=== PATIENT | female | born 1960 | race Caucasian/White ===

== ENCOUNTER 2018-06-23 15:13 | Inpatient (IN) ==
[2018-06-23] MEDS ORDERED: Ketorolac Inj 30 MG/ML (IVP) Vial IV.PUSH ONE (16:04)
[2018-06-23] MEDS ORDERED: Lidocaine PF 1% Inj 30 ML Vial INFILTRATN ONE (16:04)
--- NOTE | 2018-06-23 16:11 | ED ---
HPI General Chief complaint: Skin/Abscess/Foreign Body Stated complaint: RT ARM RED SWOLLEN STARTED SATURDAY Time Seen by Provider: 06/23/18 15:55 Source: patient Mode of arrival: ambulatory Limitations: no limitations History of Present Illness HPI narrative: 58yo F with PMH of COPD, DM presents to the ED with right elbow redness and pain for 2 days. Said there was a blister there but denies any trauma. Denies any fever, chest pain, sob, n/v, abdominal pain, focal weakness or numbness. Related Data Home Medications Medication Instructions Recorded Confirmed Celebrex 200 mg PO DAILY 06/23/18 06/23/18 albuterol sulfate 0.25 mg/kg INHALATION Q3H 06/23/18 06/23/18 albuterol sulfate [ProAir HFA] 2 puff INHALATION Q4-6H PRN 06/23/18 06/23/18 fluticasone [Flovent HFA] 1 puff INHALATION BID 06/23/18 06/23/18 gabapentin 300 mg PO TID 06/23/18 06/23/18 hydrochlorothiazide 12.5 mg PO DAILY 06/23/18 06/23/18 hydrochlorothiazide 12.5 mg PO DAILY 06/23/18 06/23/18 hydroxyzine pamoate 100 mg PO HS 06/23/18 06/23/18 levothyroxine 06/23/18 06/23/18 linagliptin [Tradjenta] 0 mg PO DAILY 06/23/18 06/23/18 metoprolol tartrate 0 mg PO DAILY 06/23/18 06/23/18 omeprazole 40 mg PO DAILY 06/23/18 06/23/18 potassium chloride 20 meq PO BID 06/23/18 06/23/18 Allergies Allergy/AdvReac Type Severity Reaction Status Date / Time Penicillins Allergy Rash Verified 06/23/18 15:21 Review of Systems ROS Unobtainable All other systems reviewed negative except as stated in HPI PMFSH Social History Social History Substance History: No History of Abuse Smoking Status: Former smoker How Often Do You Have a Drink Containing Alcohol: Never Recent Travel in [facility] within the Last 8 Weeks: No Recent Out of Country Travel within the Last 8 Weeks: No Immunization History Tetanus Immunization: Unsure Hx Influenza Vaccine This Season: No Exam Narrative Exam Narrative: GENERAL: 58yo F in mild distress. SKIN: Focused skin assessment warm/dry. HEAD: Atraumatic. Normocephalic. CARDIOVASCULAR: Regular rate and rhythm. No murmur appreciated. RESPIRATORY: No accessory muscle use. Clear to auscultation. Breath sounds equal bilaterally. GASTROINTESTINAL: Abdomen soft, non-tender, nondistended. MUSCULOSKELETAL: RUE: +Erythema over right elbow joint to distal forearm about 33cm by 22cm. +Fluctuance in olecranon. Pain with range of motion in right elbow. Distal pulses intact. Sensation intact. NEUROLOGICAL: Awake and alert. No obvious cranial nerve deficits. Motor grossly within normal limits. Normal speech. PSYCHIATRIC: Appropriate mood and affect; insight and judgment normal. Procedures Bursa Procedures Time Out Performed: No Side of body: right Site of Procedure: olecranon bursa XRAY Obtained: normal Antisepsis Used: Povidone-Iodine1% Local anesthetic used: lidocaine 1% Amount of anesthesia used (mL): 4 Fluid obtained (mL): 5 Fluid Type: cloudy and purulent Course Initial Documented Vital Signs Temperature 98.5 F 06/23/18 15:21 Pulse Rate 76 06/23/18 15:21 Respiratory Rate 18 06/23/18 15:21 Blood Pressure 120/57 L 06/23/18 15:21 Pulse Oximetry 95 06/23/18 15:21 Last Documented Vital Signs Temperature 98.5 F 06/23/18 15:21 Pulse Rate 83 06/23/18 22:00 Respiratory Rate 18 06/23/18 22:00 Blood Pressure 119/69 06/23/18 22:00 Pulse Oximetry 98 06/23/18 22:00 Critical Care Time Critical Care Time: Yes Total Critical Care Time: 35 Attestation: Aggregate critical care time was 35 minutes. Time to perform other separately billable procedures was not included in the critical care time. My time did not include minutes spent treating any other patients simultaneously or on activities that did not directly contribute to the patient's treatment. The services I provided to this patient were to treat and/or prevent clinically significant deterioration that could result in: cardiovascular collapse or . I provided critical care services requiring my management, as noted below: Chart data review, documentation time, medication orders and management, vital sign assessments/reviewing monitor data, ordering and reviewing lab tests, ordering and interpreting/reviewing x-rays and diagnostic studies, care of the patient and discussion of the patient with the admitting physicians. Medical Decision Making MDM Narrative Medical decision making narrative: 58yo F here with right elbow redness and pain for 2 days. Pt leans on her elbow a lot and had a blister on her elbow before it became red. Labs reviewed, leukocytosis at 16.6. H/H normal. Mildly elevated at 1.50. Blood cultures obtain. Pt given vancomycin. There is fluctuance of the olecranon bursa so discussed with Dr. Mccauley who said it was fine to aspirate and send fluid to lab for cell count and culture. 5.5cc of cloudy, purulent fluid aspirated and sent. Dr. Cruz wants to sent pt to the [facility] and place a consult for him. Discussed with Dr. Hollingsworth and accepted to his service. Differential Diagnosis Differential Diagnosis: Septic bursitis vs. cellulitis vs. septic joint vs. abscess Lab Data Result diagrams: 06/23/18 16:20 06/23/18 16:20 Lab Results 06/23/18 06/23/18 06/23/18 Range/Units 16:20 16:20 16:20 CBC w Diff Auto diff final WBC 16.6 H (4.0-11.0) th/mm3 RBC 5.05 (4.00-5.30) mil/mm3 Hgb 12.9 (11.6-15.3) gm/dL Hct 38.9 (35.0-46.0) % MCV 77.1 L (80.0-100.0) fL MCH 25.6 L (27.0-34.0) pg MCHC 33.2 (32.0-36.0) % RDW 15.2 (11.6-17.2) % Plt Count 225 (150-450) th/mm3 MPV 10.9 (7.0-11.0) fL Neut % (Auto) 85.8 H (16.0-70.0) % Lymph % (Auto) 4.8 L (9.0-44.0) % Clay % (Auto) 6.9 (0.0-8.0) % Eos % (Auto) 2.1 (0.0-4.0) % Baso % (Auto) 0.4 (0.0-2.0) % Neut # (Auto) 14.3 H (1.8-7.7) th/mm3 Lymph # (Auto) 0.8 L (1.0-4.8) th/mm3 Clay # (Auto) 1.1 H (0.0-0.9) th/mm3 Eos # (Auto) 0.3 (0.0-0.4) th/mm3 Baso # (Auto) 0.1 (0.0-0.2) th/mm3 WBC Differential . Differential Comment . ESR (0-30) mm/hr Sodium 137 (136-145) meq/L Potassium 3.6 (3.5-5.1) meq/L Chloride 103 (98-107) meq/L Carbon Dioxide 26.8 (21.0-32.0) meq/L Anion Gap 7 (5-15) meq/L BUN 18 (7-18) mg/dL Creatinine 1.50 H (0.50-1.00) mg/dL Estimated GFR 36 L (>89) mL/min Random Glucose 118 H (74-106) mg/dL Lactic Acid 1.2 (0.4-2.0) mmol/L Calcium 9.5 (8.5-10.1) mg/dL Synovial Color (Straw) Synovial Appearance (Clear) Synovial RBC (0-0) /mm3 Synovial Nuc Cells (0-200) /mm3 Synovial Neutrophils (0-25) % Synovial Lymphocytes % Synovial Crystals (None) 06/23/18 06/23/18 06/23/18 Range/Units 16:20 18:30 18:30 CBC w Diff WBC (4.0-11.0) th/mm3 RBC (4.00-5.30) mil/mm3 Hgb (11.6-15.3) gm/dL Hct (35.0-46.0) % MCV (80.0-100.0) fL MCH (27.0-34.0) pg MCHC (32.0-36.0) % RDW (11.6-17.2) % Plt Count (150-450) th/mm3 MPV (7.0-11.0) fL Neut % (Auto) (16.0-70.0) % Lymph % (Auto) (9.0-44.0) % Clay % (Auto) (0.0-8.0) % Eos % (Auto) (0.0-4.0) % Baso % (Auto) (0.0-2.0) % Neut # (Auto) (1.8-7.7) th/mm3 Lymph # (Auto) (1.0-4.8) th/mm3 Clay # (Auto) (0.0-0.9) th/mm3 Eos # (Auto) (0.0-0.4) th/mm3 Baso # (Auto) (0.0-0.2) th/mm3 WBC Differential Differential Comment ESR 27 (0-30) mm/hr Sodium (136-145) meq/L Potassium (3.5-5.1) meq/L Chloride (98-107) meq/L Carbon Dioxide (21.0-32.0) meq/L Anion Gap (5-15) meq/L BUN (7-18) mg/dL Creatinine (0.50-1.00) mg/dL Estimated GFR (>89) mL/min Random Glucose (74-106) mg/dL Lactic Acid (0.4-2.0) mmol/L Calcium (8.5-10.1) mg/dL Synovial Color White H (Straw) Synovial Appearance Marked H (Clear) Synovial RBC 1000 H (0-0) /mm3 Synovial Nuc Cells [id number] H (0-200) /mm3 Synovial Neutrophils 98 H (0-25) % Synovial Lymphocytes 2 % Synovial Crystals None (None) Imaging Data Radiologist's impression: Elbow X-Ray 06/23/18 16:04 CONCLUSION: No acute abnormality. Discharge Plan Discharge Disposition Patient Disposition: 30 Still Patient Discharge Details Diagnosis: Septic bursitis Physicians Team ED Provider: Aliza Contreras Primary Care Provider: NON STAFF,PROVIDER Attending Provider: Louie Hollingsworth Other Providers: Gabriel Mccauley Discharge Interventions Interventions: Vital Signs Last Done: 06/23/18 22:00 Status ED Status: Admitted Patient
--- NOTE | 2018-06-23 16:31 | XR ---
EXAM DATE: 06/23/2018 4:22 PM EDT AGE/SEX: 58 years / Female INDICATIONS: Right elbow redness and swelling for 2 days. No known trauma. CLINICAL DATA: This is the patient's initial encounter. Patient reports that signs and symptoms have been present for 2 days and indicates a pain score of 4/10. MEDICAL/SURGICAL HISTORY: None. None. COMPARISON: No prior exams available for comparison. FINDINGS: Bony structures are intact and in normal alignment. Joints are intact without dislocation or signifi cant arthropathy. Osseous density is normal. Soft tissues are unremarkable. No radiopaque foreign bodies seen. CONCLUSION: No acute abnormality. Electronically signed by: James Dave MD 06/23/2018 4:29 PM EDT
[2018-06-23 16:36] LABS: Baso # (Auto) 0.1 th/mm3 (0.0-0.2); Baso % (Auto) 0.4 % (0.0-2.0); Eos # (Auto) 0.3 th/mm3 (0.0-0.4); Eos % (Auto) 2.1 % (0.0-4.0); Hematocrit 38.9 % (35.0-46.0); Hemoglobin 12.9 gm/dL (11.6-15.3); Lymph # (Auto) 0.8 th/mm3 (1.0-4.8); Lymph % (Auto) 4.8 % (9.0-44.0); Mean Corpuscular HGB Conc 33.2 % (32.0-36.0); Mean Corpuscular Hemoglobin 25.6 pg (27.0-34.0); Mean Corpuscular Volume 77.1 fL (80.0-100.0); Mean Platelet Volume 10.9 fL (7.0-11.0); Mono # (Auto) 1.1 th/mm3 (0.0-0.9); Mono % (Auto) 6.9 % (0.0-8.0); Neut # (Auto) 14.3 th/mm3 (1.8-7.7); Neut % (Auto) 85.8 % (16.0-70.0); Platelet Count 225 th/mm3 (150-450); Red Blood Count 5.05 mil/mm3 (4.00-5.30); Red Cell Distribution Width 15.2 % (11.6-17.2); White Blood Count 16.6 th/mm3 (4.0-11.0)
[2018-06-23] MEDS ORDERED: Vancomycin Inj 1 GM/200 ML PIGGYBACK IV.SIG ONE (16:41)
[2018-06-23 16:46] LABS: Potassium 3.6 meq/L (3.5-5.1)
[2018-06-23 16:49] LABS: Calcium 9.5 mg/dL (8.5-10.1)
[2018-06-23 16:50] LABS: Carbon Dioxide 26.8 meq/L (21.0-32.0)
[2018-06-23 18:56] LABS: Appearance,Synovial Fluid Marked (Clear); Color,Synovial Fluid White (Straw)
[2018-06-23 19:48] LABS: Lymphocytes,Synovial Fluid 2 %; Neutrophils,Synovial Fluid 98 % (0-25)
[2018-06-23] MEDS ORDERED: Sod Chloride 0.9% Inj 1,000 ML IV.SIG ONE (19:54)
[2018-06-23] MEDS ORDERED: Bisacodyl 10 MG Supp RECTAL PRN (20:24)
[2018-06-23] MEDS ORDERED: Temazepam 15 MG Capsule PO PRN (20:24)
[2018-06-23] MEDS ORDERED: Acetaminophen 325 MG Tablet PO PRN (20:24)
[2018-06-23] MEDS ORDERED: Vancomycin Consult Pharmacy 1 EACH OTHER SCH (21:00)
[2018-06-23] MEDS: Senna/Docusate Sodium 8.6/50 MG Tablet PO SCH (22:16)
[2018-06-23] MEDS: Sod Chloride 0.9% Inj 1,000 ML IV.CONT SCH (22:17)
[2018-06-24] MEDS ORDERED: Morphine Inj 4 MG/ML Vial IV.PUSH PRN (04:51)
--- NOTE | 2018-06-24 05:11 | P.HPIM ---
History of Present Illness Primary Care Physician: PROVIDER NON STAFF History of Present Illness: 58 y/o female with a history of copd, htn, hld, neuropathy and DM presented to the ED with complaints of right elbow redness for 3 days. Patient states she leans on the shopping cart with her elbows and a blister formed and has now opened. She states the redness has increased around the right elbow extending up and down the arm. She has associated intermittent throbbing pain, 7/10, with no radiation or associated symptoms. She denies any chest pain, sob, fever or chills. Inpatient Certification: I certify that the inpatient services were ordered in accordance with Medicare regulations governing the order. This includes certification that hospital inpatient services are reasonable and necessary and in the case of services not specified as inpatient-only under 42 CFR 419.22(n), that they are appropriately provided as inpatient services in accordance to with the 2-midnight benchmark under 43 CFR 412.3(e) Estimated Total Length of Stay (Days): 2 Plans for Post Hospital Care: Home Review of Systems All other systems reviewed negative except as stated in HPI PMFSH - History History Provided By: Patient - Medical History Medical History: Medical History (Last Updated 06/24/18 @ 04:43 by IRAJ Iqbal) COPD (chronic obstructive pulmonary disease) Diabetes Diabetic neuropathy HLD (hyperlipidemia) HTN (hypertension) Hypothyroid - Surgical History Surgical History: Surgical History (Last Updated 06/24/18 @ 04:44 by IRAJ Iqbal) H/O arthroscopic knee surgery H/O tubal ligation - Tobacco History Second Hand Smoke Exposure: No Tobacco Use In Past 30 Days: No Smoking Status: Former smoker - Alcohol History How Often Do You Have a Drink Containing Alcohol: Never - Substance Use History Substance History: No History of Abuse - Travel History Recent Travel in the [place] Within the Last 8 Weeks: No Recent Travel Out of the Country Within the Last 8 Weeks: No - Immunization History Tetanus Immunization: Unsure Hx Influenza Vaccine This Season: No Medications and Allergies Active Medications: Active Medications Acetaminophen (Tylenol) 650 mg PO Q4H PRN PRN Reason: Temp > 100.4 Al Hydroxide/Mg Hydroxide (Milk Of Magnesia Liq) 30 ml PO Q12H PRN PRN Reason: Mild Constipation Bisacodyl (Dulcolax Supp) 10 mg RECTAL DAILY PRN PRN Reason: SEVERE CONSITIPATION Sodium Chloride (Ns Inj) 1,000 mls @ 100 mls/hr IV.CONT .Q10H [facility] Last Admin: 06/23/18 22:17 Dose: 100 mls/hr Pharmacy Profile Note (Vancomycin Consult Pharmacy) 0 mls @ 0 mls/hr OTHER [facility] Vancomycin HCl 1,700 mg/ (Sodium Chloride) 517 mls @ 250 mls/hr IV.SIG Q24H [facility] Lactulose (Lactulose Liq) 30 ml PO DAILY PRN PRN Reason: SEVERE CONSITIPATION Miscellaneous Information ([facility] Ordered Lab Info) 1 each OTHER ONCE ONE Stop: 06/27/18 05:46 Ondansetron HCl (Zofran Inj) 4 mg IV.PUSH Q6H PRN PRN Reason: NAUSEA OR VOMITING Senna/Docusate Sodium (Zakia-Colace) 1 tab PO BID [facility] Last Admin: 06/23/18 22:16 Dose: 1 tab Sennosides (Senokot) 17.2 mg PO Q12H PRN PRN Reason: Moderate Constipation Temazepam (Restoril) 15 mg PO HS PRN PRN Reason: INSOMNIA Allergies Allergy/AdvReac Type Severity Reaction Status Date / Time Penicillins Allergy Rash Verified 06/23/18 15:21 Home Medications Medication Instructions Recorded Confirmed Type Celebrex 200 mg PO DAILY 06/23/18 06/23/18 History albuterol sulfate 0.25 mg/kg INHALATION Q3H 06/23/18 06/23/18 History albuterol sulfate [ProAir HFA] 2 puff INHALATION Q4-6H PRN 06/23/18 06/23/18 History fluticasone [Flovent HFA] 1 puff INHALATION BID 06/23/18 06/23/18 History gabapentin 300 mg PO TID 06/23/18 06/23/18 History hydrochlorothiazide 12.5 mg PO DAILY 06/23/18 06/23/18 History hydrochlorothiazide 12.5 mg PO DAILY 06/23/18 06/23/18 History hydroxyzine pamoate 100 mg PO HS 06/23/18 06/23/18 History levothyroxine 06/23/18 06/23/18 History linagliptin [Tradjenta] 0 mg PO DAILY 06/23/18 06/23/18 History metoprolol tartrate 0 mg PO DAILY 06/23/18 06/23/18 History omeprazole 40 mg PO DAILY 06/23/18 06/23/18 History potassium chloride 20 meq PO BID 06/23/18 06/23/18 History Exam Vital signs: Vital Signs 06/23/18 15:21 06/23/18 16:32 06/23/18 18:02 Temperature 98.5 F Pulse Rate 76 89 72 Respiratory Rate 18 18 Blood Pressure 120/57 L 99/56 L Pulse Oximetry 95 96 06/23/18 19:00 06/23/18 22:00 Temperature Pulse Rate 75 83 Respiratory Rate 18 18 Blood Pressure 108/50 L 119/69 Pulse Oximetry 98 98 Intake & Output 06/23/18 06/23/18 06/24/18 06:59 18:59 06:59 Weight 103.9 kg Narrative: GENERAL: This is a well-nourished, well-developed patient, in no apparent distress. SKIN: Right elbow cellulitis that extends up and down arm CARDIOVASCULAR: Regular rate and rhythm without murmurs, gallops, or rubs. RESPIRATORY: Clear to auscultation. Breath sounds equal bilaterally. No wheezes , rales, or rhonchi. GASTROINTESTINAL: Abdomen soft, non-tender, nondistended. Normal active bowel sounds MUSCULOSKELETAL: Extremities without clubbing, cyanosis, or edema. NEURO: Alert & Oriented x4 to person, place, time, situation. Moves all ext x4 Results - Labs CBC & Chem 7: 06/23/18 16:20 06/23/18 16:20 Labs: Short CBC 06/23/18 Range/Units 16:20 WBC 16.6 H (4.0-11.0) th/mm3 Hgb 12.9 (11.6-15.3) gm/dL Hct 38.9 (35.0-46.0) % Plt Count 225 (150-450) th/mm3 BMP 06/23/18 16:20 Sodium 137 Potassium 3.6 Chloride 103 Carbon Dioxide 26.8 BUN 18 Creatinine 1.50 H Calcium 9.5 - Imaging Impressions Elbow X-Ray 06/23/18 16:04 CONCLUSION: No acute abnormality. Caprini VTE Risk Assessment Caprini VTE Risk Assessment: No/Low Risk (score <= 1) Caprini Risk Assessment Model: Point Value = 1 Point Value = 2 Point Value = 3 Point Value = 5 Age 41-60 Minor surgery BMI > 25 kg/m2 Swollen legs Varicose veins or History of unexplained or recurrent spontaneous Oral contraceptives or hormone replacement Sepsis (< 1 month) Serious lung disease, including pneumonia (< 1 month) Abnormal pulmonary function Acute myocardial infarction Congestive heart failure (< 1 month) History of inflammatory bowel disease Medical patient at bed rest Age 61-74 Arthroscopic surgery Major open surgery (> 45 min) Laparoscopic surgery (> 45 min) Malignancy Confined to bed (> 72 hours) Immobilizing plaster cast Central venous access Age >= 75 History of VTE Family history of VTE Factor V Leiden Prothrombin [id number] Lupus anticoagulant Anticardiolipin antibodies Elevated serum homocysteine Heparin-induced thrombocytopenia Other congenital or acquired thrombophilia Stroke (< 1 month) Elective arthroplasty Hip, pelvis, or leg fracture Acute spinal cord injury (< 1 month) Prophylaxis Regimen: Total Risk Factor Score Risk Level Prophylaxis Regimen 0-1 Low Early ambulation 2 Moderate Order ONE of the following: *Sequential Compression Device (SCD) *Heparin 5000 units SQ BID 3-4 Higher Order ONE of the following medications: *Heparin 5000 units SQ TID *Enoxaparin/Lovenox 40 mg SQ daily (WT < 150 kg, CrCl > 30 mL/min) *Enoxaparin/Lovenox 30 mg SQ daily (WT < 150 kg, CrCl > 10-29 mL/min) *Enoxaparin/Lovenox 30 mg SQ BID (WT < 150 kg, CrCl > 30 mL/min) AND/OR *Sequential Compression Device (SCD) 5 or more Highest Order ONE of the following medications: *Heparin 5000 units SQ TID (Preferred with Epidurals) *Enoxaparin/Lovenox 40 mg SQ daily (WT < 150 kg, CrCl > 30 mL/min) *Enoxaparin/Lovenox 30 mg SQ daily (WT < 150 kg, CrCl > 10-29 mL/min) *Enoxaparin/Lovenox 30 mg SQ BID (WT < 150 kg, CrCl > 30 mL/min) AND *Sequential Compression Device (SCD) Assessment and Plan - Plan 58 y/o female with a history of copd, htn, hld, neuropathy and DM presented to the ED with complaints of right elbow redness for 3 days. Septic bursitis synovial fluid nuc cells>[id number] -Consult orthopedics for evaluation -IV antibiotics: Vancomycin and Azactam -Pain management with IV morphine -fluid culture pending -NPO, IVF HTN, chronic, controlled -Resume home medications, monitor vitals and adjust accordingly DM, chronic -Accu checks with SSI -Diabetic diet when no longer npo DVT prophylaxis: SCDs, hold chemical until evaluated by ortho Discussed Condition With: Patient and ED
[2018-06-24] MEDS ORDERED: Dextrose 50% in Water 50 ML Vial IV.PUSH PRN (05:20)
--- NOTE | 2018-06-24 07:16 | MB ---
cc: Fracisco Griffith MD DATE: 06/24/2018 REASON FOR CONSULTATION: Right elbow infection. HISTORY OF PRESENT ILLNESS: Kaitlin is a 58-year-old female who has a history of COPD, hypertension, high cholesterol, and diabetes. She presented to the emergency room with increasing pain and redness of her elbow. She initially had a small blister. She did have some drainage present. The redness has been increasing in the area of her arm. She has been admitted for treatment of this injury. She has some fluctuance around the olecranon bursa. Her right elbow is her only complaint currently. PAST MEDICAL HISTORY: COPD, diabetes, peripheral neuropathy, high cholesterol, hypertension, and hypothyroidism. PAST SURGICAL HISTORY: Arthroscopic knee surgery and tubal ligation. ALLERGIES: PENICILLIN. SOCIAL HISTORY: The patient was a former smoker. She denies alcohol use. She denies drug use. FAMILY HISTORY: Noncontributory. HOME MEDICATIONS: Include: 1. Celebrex. 2. Albuterol. 3. Gabapentin. 4. Hydrochlorothiazide. 5. Hydroxyzine. 6. Levothyroxine. 7. Metoprolol. 8. Omeprazole. 9. Potassium. REVIEW OF SYSTEMS: The patient denies fevers, chills, weight loss, headache, visual changes, hearing loss, chest pain, palpitations, shortness of breath, nausea, vomiting, urinary changes, diarrhea, bowel changes, neck pain, back pain, skin rashes, weakness or numbness of extremities, anxiety or depression. She complains of right elbow pain and swelling and redness. LABORATORY DATA: The patient has a white blood cell count of 16.6, hematocrit of 38.9, platelet count 225. Potassium of 3.6, creatinine of 1.50. IMAGING STUDIES: X-rays of right elbow were reviewed. X-rays revealed no evidence of acute fracture. There is some soft tissue swelling around the posterior olecranon. PHYSICAL EXAMINATION: GENERAL: The patient is a well-developed, well-nourished 58-year-old female. She is in no acute distress. She is awake and alert. She is moderately overweight. VITAL SIGNS: Pulse 89, respirations 18, blood pressure 99/56, O2 saturations 96% on room air. HEENT: Head: The patient is normocephalic. Pupils are equal. NECK: Soft, nontender. The trachea is in the midline. ABDOMEN: Soft, nontender and nondistended. EXTREMITIES: Examination of her right arm reveals no tenderness on her shoulder, wrist or fingers. Sensation is intact in all fingers. Examination of her elbow reveals a large area of cellulitis around the elbow. There is fluctuance around the olecranon bursa. Elbow range of motion is from 30 degrees up to 130 degrees with minimal discomfort. Examination of the left arm reveals no pain with shoulder, elbow or wrist motion. Skin is intact. Radial pulse is palpable. Sensation is intact at all fingers. Examination of bilateral lower extremities reveals no obvious pain or deformity with hip, knee or ankle motion. Skin is intact in both feet. Dorsalis pedis pulses are palpable. Sensation is intact to both feet. IMPRESSION: 1. Diabetes. 2. Hypertension. 3. Right elbow cellulitis. 4. Right elbow olecranon bursitis. PLAN: Treatment options were discussed with the patient. At this point, I would recommend irrigation and debridement of right elbow with excision of olecranon bursa. Risks of surgery include bleeding, infection; injuries to arteries, nerves and blood vessels; wound infection, as well as medical complications associated with anesthesia. All questions were answered. I will plan on surgery today. A mid-level provider in my office, nurse practitioner or PA, may see this patient on a follow-up basis and continue to implement the objective of this plan including: Starting or adjusting medications, injections of muscle, tendon, bursa or joints, cast application, orthotic or brace application, physical therapy, further radiographic studies including x-ray, MRI, CT, ultrasounds or bone scan, vascular studies, neurologic studies, or other specialist consultations, and proceeding with surgical management as appropriate. MD JULIÁN Kelley/LORETO , 06:58 AM , 07:14 AM
[2018-06-24] MEDS: Vancomycin Inj 1,700 MG in Sodium Chlor 0.9% Inj 500 ML IV.SIG SCH (07:51)
[2018-06-24] MEDS: Insulin NovoLOG Aspart Correctional Sugar Inj SQ SCH ×4 (08:05→21:47)
[2018-06-24] MEDS: Senna/Docusate Sodium 8.6/50 MG Tablet PO SCH ×2 (08:33→21:43)
[2018-06-24] MEDS: Metoprolol Tartrate 25 MG Tablet PO SCH (08:33)
[2018-06-24] MEDS: Gabapentin 300 MG Capsule PO SCH ×3 (08:38→22:05)
[2018-06-24 09:09] LABS: Baso % (Auto) 0.4 % (0.0-2.0); Eos # (Auto) 0.4 th/mm3 (0.0-0.4); Hematocrit 34.6 % (35.0-46.0); Hemoglobin 11.4 gm/dL (11.6-15.3); Lymph # (Auto) 0.7 th/mm3 (1.0-4.8); Lymph % (Auto) 5.1 % (9.0-44.0); Mean Corpuscular Hemoglobin 25.4 pg (27.0-34.0); Mean Corpuscular Volume 76.9 fL (80.0-100.0); Mean Platelet Volume 10.6 fL (7.0-11.0); Mono # (Auto) 1.1 th/mm3 (0.0-0.9); Mono % (Auto) 8.4 % (0.0-8.0); Neut # (Auto) 10.9 th/mm3 (1.8-7.7); Neut % (Auto) 83.1 % (16.0-70.0); Platelet Count 193 th/mm3 (150-450); Red Cell Distribution Width 15.3 % (11.6-17.2); White Blood Count 13.1 th/mm3 (4.0-11.0)
[2018-06-24 09:29] LABS: Carbon Dioxide 21.1 meq/L (21.0-32.0); Potassium 3.3 meq/L (3.5-5.1)
[2018-06-24] MEDS ORDERED: Sodium Chlor 0.9% Inj 500 ML IV.SIG SCH (17:00)
[2018-06-24] MEDS ORDERED: Chlorhexidine Gluconate 2% 1 Pack (2 Cloths) TOPICAL SCH (17:00)
--- NOTE | 2018-06-24 18:02 | ECG ---
Date Performed: 06/24/2018 Time Performed: 16:32:09 PTAGE: 58 years EKG: Sinus rhythm RIGHT BUNDLE BRANCH BLOCK ABNORMAL ECG NO PREVIOUS TRACING DOCTOR: Juan Alberto Frederick Interpretating Date/Time 06/24/2018 18:01:09
[2018-06-24] MEDS: Celecoxib 200 MG Capsule PO SCH (19:50)
[2018-06-24] MEDS ORDERED: Loperamide 2 MG Capsule PO PRN (21:56)
[2018-06-25] MEDS: Sod Chloride 0.9% Inj 1,000 ML IV.CONT SCH ×4 (05:50→14:19)
[2018-06-25] MEDS: Vancomycin Inj 1,700 MG in Sodium Chlor 0.9% Inj 500 ML IV.SIG SCH (07:22)
[2018-06-25] MEDS ORDERED: ceFAZolin 2 GM Premix Inj 2 GM/50 ML PIGGYBACK IV.SIG ONE (07:32)
[2018-06-25] MEDS: Insulin NovoLOG Aspart Correctional Sugar Inj SQ SCH ×4 (08:09→21:10)
[2018-06-25] MEDS: Gabapentin 300 MG Capsule PO SCH ×4 (08:10→21:15)
[2018-06-25] MEDS: Celecoxib 200 MG Capsule PO SCH (08:10)
[2018-06-25] MEDS: Metoprolol Tartrate 25 MG Tablet PO SCH (08:10)
[2018-06-25] MEDS: Senna/Docusate Sodium 8.6/50 MG Tablet PO SCH ×2 (08:10→21:06)
[2018-06-25] MEDS ORDERED: TRADJENTA 5 MG PO SCH (09:00)
[2018-06-25] MEDS ORDERED: Post-op Orders (for Pharmacy) OTHER STA (09:14)
--- NOTE | 2018-06-25 09:20 | P.OP ---
- Preoperative Diagnosis (1) Septic bursitis Date of procedure: 06/25/18 Implants: Irrigation and debridement of right elbow with excision of olecranon bursa Anesthesia: GETA Surgeon: Fracisco Perea MD Swing Type Lathe Operator: HANSA Mayo PA-C The surgical procedure was assisted by my physician district administrative assistant. My P.A. presence was necessary throughout this case for the manipulation and positioning of the surgical extremity. My P.A. was assisting me throughout the duration of this procedure. The skill set of a physician district administrative assistant was medically necessary to complete this procedure. During the surgical case the time study technician was working at the back table and the physician district administrative assistant was directly assisting me. Operation and Findings: Kaitlin was seen and evaluated preoperatively. She was found to have septic olecranon bursitis with cellulitis. Informed consent was obtained preoperatively after detailed discussion of the risk and benefits of surgery. Operative site was marked. She is brought the operating room. She is given IV sedation and general anesthesia. Right arm was prepped with alcohol followed Hibiclens and draped in the usual sterile fashion. Timeout procedure was performed. Procedure began with a 3 inch incision over the olecranon. Subcutaneous tissue was dissected with Bovie. There was a purulent fluid abscess around the olecranon bursa. Culture specimens were obtained. At this point attention was turned to excision of the olecranon bursa. Curettes and rongeurs were used to debride the bursa and subcutaneous tissue. All visible infected tissue was excised sharply. At this point the wound was thoroughly irrigated with pulsatile lavage. Subcutaneous tissue was closed with 3-0 PDS. A Chinmay drain was placed. Skin was closed with 3-0 nylon. Sterile dressings were applied. Patient was awakened and transferred to recovery room in stable condition.
[2018-06-25] MEDS ORDERED: *morphine SULFATE 4 MG/ML PERIprocedure ONLY ONE ×2 (09:41→09:52)
[2018-06-25] MEDS ORDERED: fentaNYL Citrate Inj 100 MCG/2 ML Ampul ONE (09:46)
[2018-06-25 15:00] LABS: Hematocrit 34.1 % (35.0-46.0); Hemoglobin 10.8 gm/dL (11.6-15.3); Mean Corpuscular HGB Conc 31.7 % (32.0-36.0); Mean Corpuscular Hemoglobin 24.9 pg (27.0-34.0); Mean Corpuscular Volume 78.5 fL (80.0-100.0); Mean Platelet Volume 10.6 fL (7.0-11.0); Platelet Count 201 th/mm3 (150-450); Red Blood Count 4.35 mil/mm3 (4.00-5.30); Red Cell Distribution Width 15.2 % (11.6-17.2); White Blood Count 10.9 th/mm3 (4.0-11.0)
--- NOTE | 2018-06-25 15:31 | P.PNIM ---
Subjective Interval history: Patient reports she is feeling okay today. Status post I&D of right elbow abscess. No fevers. Physical Exam Vital signs: Vital Signs 06/24/18 16:00 06/24/18 20:00 06/24/18 23:42 Temperature 97.8 F 98.1 F 98.3 F Pulse Rate 76 89 95 H Respiratory Rate 18 16 16 Blood Pressure 122/64 128/70 114/57 L Pulse Oximetry 94 L 97 92 L 06/25/18 04:00 06/25/18 09:33 06/25/18 09:45 Temperature 98.4 F 98.7 F Pulse Rate 92 H 91 H 86 Respiratory Rate 16 14 22 Blood Pressure 115/60 159/64 H 113/60 Pulse Oximetry 93 L 94 L 94 L 06/25/18 10:00 06/25/18 10:15 06/25/18 12:00 Temperature 97.8 F Pulse Rate 89 88 80 Respiratory Rate 18 17 19 Blood Pressure 107/56 L 114/60 113/72 Pulse Oximetry 100 94 L 90 L Intake & Output 06/24/18 06/25/18 06/25/18 18:59 06:59 18:59 Intake Total 1580 / 1580 0 / 0 3567 / 3567 Output Total 50 / 50 Balance 1580 / 1580 0 / 0 3517 / 3517 Weight 103.5 kg Intake: IV 1100 / 1100 2867 / 2867 NS Inj 1,000 ML @ 100 mls/hr IV 1000 / 1000 1000 / 1000 .CONT .Q10H [facility] Rx#:[id number] Azactam Inj 1,000 MG In NS Inj 100 / 100 100 / 100 100 ML @ 200 mls/hr IV.SIG Q12H [facility] Rx#:[id number] Vancomycin Inj 1,700 MG In NS 517 / 517 Inj 500 ML @ 250 mls/hr IV.SIG Q24H [facility] Rx#:[id number] Ancef 2 GM Premix Inj 2 gm In 50 / 50 50 ml @ 0 mls/hr IV.SIG .STK- [facility] Rx#:[id number] Oral 480 / 480 0 / 0 Anesthesia Amount 700 / 700 Output: Estimated Blood Loss 50 / 50 Other: # Voids 3 4 # Bowel Movements 1 Narrative: GENERAL: Obese female in no apparent distress. CARDIOVASCULAR: Normal rate and regular rhythm without murmurs, gallops, or rubs. RESPIRATORY: Good respiratory efforts. Breath sounds equal and clear to auscultation bilaterally. GASTROINTESTINAL: Abdomen soft, non-tender, non-distended. Normal active bowel sounds MUSCULOSKELETAL: Right elbow is wrapped in postsurgical dressing. Resolving erythema around the elbow. Significantly improved compared to previous exam. Neurovascularly intact distally. NEURO: Alert & Oriented x4 to person, place, time, situation. Moves all ext x4 PSYCH: Appropriate mood and affect. Results - Labs CBC & Chem 7: 06/25/18 14:28 06/26/18 06:20 Laboratory Results - last 24 hr 06/24/18 06/25/18 06/25/18 21:47 10:17 12:09 WBC RBC Hgb Hct MCV MCH MCHC RDW Plt Count MPV POC Glucose 168 H 151 H 172 H 06/25/18 14:28 WBC 10.9 RBC 4.35 Hgb 10.8 L Hct 34.1 L MCV 78.5 L MCH 24.9 L MCHC 31.7 L RDW 15.2 Plt Count 201 MPV 10.6 POC Glucose Microbiology 06/23/18 18:30 Fluid - Synovial Fluid Gram Stain - Final 06/23/18 18:30 Fluid - Synovial Fluid Body Fluid Culture - Final Staphylococcus aureus 06/23/18 16:25 Blood - Peripheral Aerobic Blood Culture - Preliminary No growth in 2 days 06/23/18 16:25 Blood - Peripheral Anaerobic Blood Culture - Preliminary No growth in 2 days 06/23/18 16:20 Blood - Peripheral Aerobic Blood Culture - Preliminary No growth in 2 days 06/23/18 16:20 Blood - Peripheral Anaerobic Blood Culture - Preliminary No growth in 2 days Assessment and Plan - Plan 58 y/o female with a history of copd, htn, hld, neuropathy and DM presented to the ED with complaints of right elbow redness for 3 days. Septic bursitis synovial fluid nuc cells>[id number] -Orthopedic surgery following. She underwent I&D. -Continue vancomycin and Azactam. Fluid culture grew MSSA. Anticipate discharge on Bactrim for 2 weeks to complete the course of treatment. HTN, chronic, controlled -Resume home medications, monitor vitals and adjust accordingly DM, chronic -Accu checks with SSI -Continue home diabetes medications. Continue the rest of the patient's home medications for her chronic conditions.
[2018-06-25 15:59] LABS: Calcium 8.7 mg/dL (8.5-10.1); Carbon Dioxide 24.7 meq/L (21.0-32.0); Potassium 3.4 meq/L (3.5-5.1)
[2018-06-26] MEDS: Vancomycin Inj 1,700 MG in Sodium Chlor 0.9% Inj 500 ML IV.SIG SCH (05:53)
[2018-06-26] MEDS: Sod Chloride 0.9% Inj 1,000 ML IV.CONT SCH ×3 (07:02→20:03)
[2018-06-26] MEDS: Insulin NovoLOG Aspart Correctional Sugar Inj SQ SCH ×4 (07:33→23:29)
--- NOTE | 2018-06-26 07:42 | P.PNOP ---
Subjective Interval history: POD 1 s/p I&D right elbow doing well. pain controlled. no new complaints. Physical Exam Vital signs: Vital Signs 06/25/18 09:33 06/25/18 09:45 06/25/18 10:00 Temperature 98.7 F Pulse Rate 91 H 86 89 Respiratory Rate 14 22 18 Blood Pressure 159/64 H 113/60 107/56 L Pulse Oximetry 94 L 94 L 100 06/25/18 10:15 06/25/18 12:00 06/25/18 16:00 Temperature 97.8 F 97.7 F Pulse Rate 88 80 82 Respiratory Rate 17 19 20 Blood Pressure 114/60 113/72 138/78 Pulse Oximetry 94 L 90 L 95 06/25/18 20:00 06/26/18 01:23 06/26/18 04:00 Temperature 98.3 F 98.3 F 98.2 F Pulse Rate 78 77 75 Respiratory Rate 17 17 17 Blood Pressure 130/72 125/73 106/66 Pulse Oximetry 96 95 98 Intake & Output 06/25/18 06/26/18 06/26/18 18:59 06:59 18:59 Intake Total 3867 / 3867 1340 / 1340 Output Total 50 / 50 Balance 3817 / 3817 1340 / 1340 Weight 102 kg Intake: IV 2967 / 2967 1100 / 1100 NS Inj 1,000 ML @ 100 mls/hr IV 1000 / 1000 1000 / 1000 .CONT .Q10H [facility] Rx#:[id number] Azactam Inj 1,000 MG In NS Inj 200 / 200 100 / 100 100 ML @ 200 mls/hr IV.SIG Q12H [facility] Rx#:[id number] Vancomycin Inj 1,700 MG In NS 517 / 517 Inj 500 ML @ 250 mls/hr IV.SIG Q24H [facility] Rx#:[id number] Ancef 2 GM Premix Inj 2 gm In 50 / 50 50 ml @ 0 mls/hr IV.SIG .STK- [facility] Rx#:[id number] Oral 200 / 200 240 / 240 Anesthesia Amount 700 / 700 Output: Estimated Blood Loss 50 / 50 Other: # Voids 2 4 # Bowel Movements 0 Narrative: RLE: dressings clean and dry. intact. NVI. moderate erythema visible in forearm Results - Labs CBC & Chem 7: 06/25/18 14:28 06/25/18 14:28 Laboratory Results - last 24 hr 06/25/18 06/25/18 06/25/18 10:17 12:09 14:28 WBC 10.9 RBC 4.35 Hgb 10.8 L Hct 34.1 L MCV 78.5 L MCH 24.9 L MCHC 31.7 L RDW 15.2 Plt Count 201 MPV 10.6 Sodium Potassium Chloride Carbon Dioxide Anion Gap BUN Creatinine Estimated GFR POC Glucose 151 H 172 H Random Glucose Calcium 06/25/18 06/25/18 06/25/18 14:28 16:44 21:10 WBC RBC Hgb Hct MCV MCH MCHC RDW Plt Count MPV Sodium 143 Potassium 3.4 L Chloride 109 H Carbon Dioxide 24.7 Anion Gap 9 BUN 12 Creatinine 1.04 H Estimated GFR 55 L POC Glucose 149 H 143 H Random Glucose 153 H Calcium 8.7 06/26/18 07:28 WBC RBC Hgb Hct MCV MCH MCHC RDW Plt Count MPV Sodium Potassium Chloride Carbon Dioxide Anion Gap BUN Creatinine Estimated GFR POC Glucose 111 H Random Glucose Calcium Microbiology 06/25/18 09:12 Tissue - Elbow Fungal Smear - Final No fungal elements seen 06/25/18 09:12 Tissue - Elbow Gram Stain - Final 06/23/18 18:30 Fluid - Synovial Fluid Gram Stain - Final 06/23/18 18:30 Fluid - Synovial Fluid Body Fluid Culture - Final Staphylococcus aureus 06/23/18 16:25 Blood - Peripheral Aerobic Blood Culture - Preliminary No growth in 2 days 06/23/18 16:25 Blood - Peripheral Anaerobic Blood Culture - Preliminary No growth in 2 days 06/23/18 16:20 Blood - Peripheral Aerobic Blood Culture - Preliminary No growth in 2 days 06/23/18 16:20 Blood - Peripheral Anaerobic Blood Culture - Preliminary No growth in 2 days Assessment and Plan - Assessment and Plan 1) Right Elbow Abscess s/p I&D - POD 1 -WBAT -daily dressing changes POD 2 -Infectious Dz for Abx -ortho clear for DC home once Abx arranged -patient from [place] and will need to follow up with ortho in 2 weeks at home
[2018-06-26] MEDS: Celecoxib 200 MG Capsule PO SCH (09:18)
[2018-06-26] MEDS: Metoprolol Tartrate 25 MG Tablet PO SCH (09:18)
[2018-06-26] MEDS: Gabapentin 300 MG Capsule PO SCH ×4 (09:19→20:06)
[2018-06-26] MEDS: Senna/Docusate Sodium 8.6/50 MG Tablet PO SCH ×2 (09:19→20:09)
--- NOTE | 2018-06-26 09:46 | P.DS ---
Date of admission: 06/23/18 19:13 Primary care physician: PROVIDER NON STAFF Brief History from admission: HPI from the admitting physician 58 y/o female with a history of copd, htn, hld, neuropathy and DM presented to the ED with complaints of right elbow redness for 3 days. Patient states she leans on the shopping cart with her elbows and a blister formed and has now opened. She states the redness has increased around the right elbow extending up and down the arm. She has associated intermittent throbbing pain, 7/10, with no radiation or associated symptoms. She denies any chest pain, sob, fever or chills. Update on the day of discharge 06/26/18: Patient reports she is feeling well today. Minimal pain. Moving elbow joint freely. No fevers. DS: Diagnosis - Discharge Diagnosis (1) Septic bursitis Status: Acute DS: Summary Hospital Course: 58 y/o female with a history of copd, htn, hld, neuropathy and DM presented to the ED with complaints of right elbow redness for 3 days. Septic bursitis synovial fluid nuc cells>[id number] -Orthopedic surgery followed the patient. She underwent I&D. -Patient initially treated with IV antibiotics: Vancomycin and Azactam. Fluid culture grew MSSA. She is discharged on Bactrim for 2 weeks to complete the course of treatment. Patient is advised to follow-up outpatient with PCP and orthopedics when she returns to [place]. HTN, chronic, controlled -Resume home medications, monitor vitals and adjust accordingly DM, chronic -Accu checks with SSI -Continue home diabetes medications. Continue the rest of the patient's home medications for her chronic conditions. - Time Spent with Patient Total time spent providing and/or coordinating discharge services: - Quality: VTE Deep Vein Thrombosis/Pulmonary Embolism Present on Admission: No Exam Vital signs: Vital Signs 06/25/18 10:00 06/25/18 10:15 06/25/18 12:00 Temperature 97.8 F Pulse Rate 89 88 80 Respiratory Rate 18 17 19 Blood Pressure 107/56 L 114/60 113/72 Pulse Oximetry 100 94 L 90 L 06/25/18 16:00 06/25/18 20:00 06/26/18 01:23 Temperature 97.7 F 98.3 F 98.3 F Pulse Rate 82 78 77 Respiratory Rate 20 17 17 Blood Pressure 138/78 130/72 125/73 Pulse Oximetry 95 96 95 06/26/18 04:00 06/26/18 08:00 Temperature 98.2 F 98.8 F Pulse Rate 75 82 Respiratory Rate 17 17 Blood Pressure 106/66 137/63 Pulse Oximetry 98 97 Intake & Output 06/25/18 06/26/18 06/26/18 18:59 06:59 18:59 Intake Total 3867 / 3867 1340 / 1340 517 / 517 Output Total 50 / 50 Balance 3817 / 3817 1340 / 1340 517 / 517 Weight 102 kg Intake: IV 2967 / 2967 1100 / 1100 517 / 517 NS Inj 1,000 ML @ 100 mls/hr IV 1000 / 1000 1000 / 1000 .CONT .Q10H [facility] Rx#:[id number] Azactam Inj 1,000 MG In NS Inj 200 / 200 100 / 100 100 ML @ 200 mls/hr IV.SIG Q12H [facility] Rx#:[id number] Vancomycin Inj 1,700 MG In NS 517 / 517 517 / 517 Inj 500 ML @ 250 mls/hr IV.SIG Q24H [facility] Rx#:[id number] Ancef 2 GM Premix Inj 2 gm In 50 / 50 50 ml @ 0 mls/hr IV.SIG .STK- [facility] Rx#:[id number] Oral 200 / 200 240 / 240 Anesthesia Amount 700 / 700 Output: Estimated Blood Loss 50 / 50 Other: # Voids 2 4 # Bowel Movements 0 Narrative: GENERAL: Obese female in no apparent distress. CARDIOVASCULAR: Normal rate and regular rhythm without murmurs, gallops, or rubs. RESPIRATORY: Good respiratory efforts. Breath sounds equal and clear to auscultation bilaterally. GASTROINTESTINAL: Abdomen soft, non-tender, non-distended. Normal active bowel sounds MUSCULOSKELETAL: Right elbow is wrapped in postsurgical dressing. Resolving erythema around the elbow. Significantly improved compared to yesterday. Neurovascularly intact distally. NEURO: Alert & Oriented x4 to person, place, time, situation. Moves all ext x4 PSYCH: Appropriate mood and affect. Results Procedures completed during hospitalization: I&D of right elbow abscess Labs on day of discharge: Labs from last 24 hours 06/26/18 06/26/18 06/26/18 07:28 06:20 06:20 WBC RBC Hgb Hct MCV MCH MCHC RDW Plt Count MPV Sodium Potassium Chloride Carbon Dioxide Anion Gap BUN Creatinine 0.95 Estimated GFR 61 L POC Glucose 111 H Random Glucose Calcium Vit D 1,25-Dihydroxy Pending 06/25/18 06/25/18 06/25/18 21:10 16:44 14:28 WBC RBC Hgb Hct MCV MCH MCHC RDW Plt Count MPV Sodium 143 Potassium 3.4 L Chloride 109 H Carbon Dioxide 24.7 Anion Gap 9 BUN 12 Creatinine 1.04 H Estimated GFR 55 L POC Glucose 143 H 149 H Random Glucose 153 H Calcium 8.7 Vit D 1,25-Dihydroxy 06/25/18 06/25/18 06/25/18 14:28 12:09 10:17 WBC 10.9 RBC 4.35 Hgb 10.8 L Hct 34.1 L MCV 78.5 L MCH 24.9 L MCHC 31.7 L RDW 15.2 Plt Count 201 MPV 10.6 Sodium Potassium Chloride Carbon Dioxide Anion Gap BUN Creatinine Estimated GFR POC Glucose 172 H 151 H Random Glucose Calcium Vit D 1,25-Dihydroxy Preliminary micro results at discharge 06/23/18 16:25 Aerobic Blood Culture - Preliminary Blood - Peripheral No growth in 2 days Anaerobic Blood Culture - Preliminary No growth in 2 days 06/23/18 16:20 Aerobic Blood Culture - Preliminary Blood - Peripheral No growth in 2 days Anaerobic Blood Culture - Preliminary No growth in 2 days - Impressions ITS Impressions Elbow X-Ray 06/23/18 16:04 CONCLUSION: No acute abnormality. Discharge Plan - Discharge Disposition Patient Disposition: 01 Discharge Home - Discharge Condition Condition: Good - Discharge Order Discharge Orders: Discharge Order (Routine); Ordered 06/26/18 Ordered By: Cal Nuñez - Physicians Team Primary Care Provider: NON STAFF,PROVIDER Attending Provider: Cal Nuñez Other Providers: Gabriel Mccauley MD ; Fracisco Perea MD ; [employer]
[2018-06-27] MEDS ORDERED: Pharmacy Ordered Lab Info OTHER ONE (05:45)
[2018-06-27] MEDS: Sod Chloride 0.9% Inj 1,000 ML IV.CONT SCH (06:12)
[2018-06-27] MEDS: Vancomycin Inj 1,700 MG in Sodium Chlor 0.9% Inj 500 ML IV.SIG SCH (06:16)
--- NOTE | 2018-06-27 07:28 | P.PNOP ---
Subjective Interval history: POd 3 s/p I&D right elbow doing well. reports that erythema is improving. states that milton drain came out when did dressing change last night Physical Exam Vital signs: Vital Signs 06/26/18 08:00 06/26/18 16:00 06/26/18 20:27 Temperature 98.8 F 97.6 F 97.7 F Pulse Rate 82 73 75 Respiratory Rate 17 18 20 Blood Pressure 137/63 117/58 L 129/60 Pulse Oximetry 97 92 L 96 06/27/18 00:41 Temperature 98.5 F Pulse Rate 78 Respiratory Rate 18 Blood Pressure 123/58 L Pulse Oximetry 96 Intake & Output 06/26/18 06/27/18 06/27/18 18:59 06:59 18:59 Intake Total 1192 / 1192 880 / 880 100 / 100 Balance 1192 / 1192 880 / 880 100 / 100 Intake: IV 517 / 517 100 / 100 100 / 100 Azactam Inj 1,000 MG In NS Inj 100 / 100 100 / 100 100 ML @ 200 mls/hr IV.SIG Q12H [facility] Rx#:[id number] Vancomycin Inj 1,700 MG In NS 517 / 517 Inj 500 ML @ 250 mls/hr IV.SIG Q24H [facility] Rx#:[id number] Oral 675 / 675 780 / 780 Other: # Voids 4 3 Date of Last Bowel Movement 06/26/18 # Bowel Movements 0 Narrative: RUE: erythema improving. dressings clean and dry. intact. NVI Results - Labs CBC & Chem 7: 06/25/18 14:28 06/26/18 06:20 Laboratory Results - last 24 hr 06/26/18 06/26/18 06/26/18 06:20 07:28 12:00 Creatinine 0.95 Estimated GFR 61 L POC Glucose 111 H 163 H 06/26/18 06/26/18 16:58 20:08 Creatinine Estimated GFR POC Glucose 112 H 141 H Microbiology 06/25/18 09:12 Tissue - Elbow Gram Stain - Final 06/25/18 09:12 Tissue - Elbow Wound Culture - Preliminary Staphylococcus aureus 06/25/18 09:12 Tissue - Elbow Acid Fast Bacilli Smear - Final No acid fast bacilli seen 06/23/18 16:25 Blood - Peripheral Aerobic Blood Culture - Preliminary No growth in 3 days 07/23/18 16:25 Blood - Peripheral Anaerobic Blood Culture - Preliminary No growth in 3 days 06/23/18 16:20 Blood - Peripheral Aerobic Blood Culture - Preliminary No growth in 3 days 06/23/18 16:20 Blood - Peripheral Anaerobic Blood Culture - Preliminary No growth in 3 days - Procedures I&D of right elbow abscess Assessment and Plan - Assessment and Plan 1) Right Elbow Abscess s/p I&D - POD 3 -WBAT -daily dressing changes -drain removed last night with dressing changes -after reviewing cultures, shows MSSA. will place on Keflex orally for 2 weeks. Will discontinue previous script for Bactrim as Keflex will be more efficient. -patient from [place] and will need to follow up with ortho in 2 weeks at home -ortho cleared for discharge
[2018-06-27 08:12] LABS: Vancomycin,Trough 0.9 mcg/mL (5.0-10.0)
[2018-06-27] MEDS: Metoprolol Tartrate 25 MG Tablet PO SCH (09:48)
[2018-06-27] MEDS: Celecoxib 200 MG Capsule PO SCH (09:49)
[2018-06-27] MEDS: Insulin NovoLOG Aspart Correctional Sugar Inj SQ SCH (09:54)
[2018-06-27] MEDS: Senna/Docusate Sodium 8.6/50 MG Tablet PO SCH (09:57)
[2018-06-27] MEDS: Gabapentin 300 MG Capsule PO SCH (09:57)
[2018-06-27 23:51] LABS: Total Protein Synovial Fluid 1.6 g/dL (1.0-3.0)
[2018-06-28] MEDS ORDERED: Vancomycin Inj 1,700 MG in Sodium Chlor 0.9% Inj 500 ML IV.SIG SCH ×2
[2018-06-29] MEDS ORDERED: Pharmacy Ordered Lab Info OTHER ONE (11:45)
== END 2018-06-27 13:57 | disposition home or self-care (01) ==
LOC: PHED 15:13 → PHEDA 19:13 → N07 06-24 01:28
PROVIDERS: ADMIT Hospitalist; ATTEND Hospitalist